=== PATIENT | male | born 1960 | race Caucasian/White ===

== ENCOUNTER 2016-08-30 10:00 | Emergency (ER) | payer MEDICAID, OTHER ==
[2016-08-30 10:00] VITALS: BMI 43.2
[2016-08-30 10:10] VITALS: TEMP 98
[2016-08-30] MEDS ORDERED: Sodium Chloride 0.9% 1,000 ML IV ONE ×2 (10:24→12:12)
[2016-08-30] MEDS ORDERED: Sodium Chloride 0.9% 1,000 ML ONE (10:34)
--- NOTE | 2016-08-30 10:42 | C.PDOC ---
History Of Present Illness 55 y/o male presents to the ED with complaints of 2 weeks left flank pain and abdominal pain. Pt denies vomiting, fever, chills, diarrhea or any other complaints. PMHx diabetes, HTN and left hernia repair. PMD Aleksandr. Time Seen by Provider: 08/30/16 10:16 Chief Complaint (Nursing): Male Genitourinary History Per: Patient History/Exam Limitations: no limitations Onset/Duration Of Symptoms: Days Current Symptoms Are (Timing): Still Present Severity: Moderate Quality Of Discomfort: "Pain" Associated Symptoms: denies: Fever, Chills, Vomiting, Diarrhea Alleviating Factors: None Recent travel outside of the [place]: No Past Medical History Reviewed: Historical Data, Nursing Documentation, Vital Signs Vital Signs: Last Vital Signs Temp 98 F 08/30/16 10:06 Pulse 74 08/30/16 10:06 Resp 18 08/30/16 10:06 BP 183/87 H 08/30/16 10:06 Pulse Ox 97 08/30/16 13:42 - Medical History PMH: Diabetes, Gastritis, HTN, Hypercholesterolemia, Chronic Pain (back pain, obesity) Comment Only: Sleep Apnea (SNORES BUT NO DX. APNEA) Surgical History: Other Surgeries: Hernia - [facility] Procedures COLONOSCOPY (02/19/14) CORONAR ARTERIOGR-2 CATH (05/13/14) INJECT/INFUSE NEC (05/13/14) LEFT HEART CARDIAC CATH (05/13/14) LT HEART ANGIOCARDIOGRAM (05/13/14) Family History: States: Unknown Family Hx - Social History Hx Tobacco Use: No Hx Alcohol Use: No (1 DAY WEEK) - Immunization History Hx Tetanus Toxoid Vaccination: Yes Hx Influenza Vaccination: Yes Hx Pneumococcal Vaccination: No Review Of Systems Except As Marked, All Systems Reviewed And Found Negative. Constitutional: Negative for: Fever, Chills Cardiovascular: Negative for: Chest Pain Gastrointestinal: Positive for: Abdominal Pain. Negative for: Vomiting, Diarrhea Musculoskeletal: Positive for: Other (left flank pain) Physical Exam - Physical Exam Appears: Non-toxic, No Acute Distress Skin: Warm, Dry, No Rash Head: Atraumatic, Normacephalic Neck: Normal, Normal ROM, Supple Chest: Symmetrical Cardiovascular: Rhythm Regular, No Murmur Respiratory: Normal Breath Sounds, No Rales, No Rhonchi, No Wheezing Gastrointestinal/Abdominal: Soft, Tenderness (LLQ), No Guarding, No Rebound Back: CVA Tenderness (mild left) Extremity: Normal ROM Extremity: Bilateral: Atraumatic Neurological/Psych: Oriented x3, Normal Speech Gait: Steady ED Course And Treatment - Laboratory Results Result Diagrams: 08/30/16 10:49 08/30/16 10:49 Lab Interpretation: Abnormal O2 Sat by Pulse Oximetry: 97 (room air) Pulse Ox Interpretation: Normal - CT Scan/US No standard instances Other Rad Studies (CT/US): Read By Radiologist, Radiology Report Reviewed CT/US Interpretation: FINDINGS: There is limited evaluation of the solid organs without the administration of IV contrast. LOWER THORAX: Minimal dependent atelectasis. There is no visible pleural effusion or pneumothorax. Small hiatal hernia/distal esophageal wall thickening. LIVER: Hepatomegaly. GALLBLADDER AND BILE DUCTS: Unremarkable unenhanced appearance. PANCREAS: Fatty atrophy of the pancreas. SPLEEN: Unremarkable unenhanced appearance. ADRENALS: Unremarkable unenhanced appearance. KIDNEYS AND URETERS: No hydronephrosis or obstructing renal calculus. BLADDER: The urinary bladder appears unremarkable. REPRODUCTIVE: Unremarkable. APPENDIX: The appendix appears within normal limits of caliber. No secondary signs of acute appendicitis. BOWEL: The stomach is nondistended. Lack of oral contrast limits evaluation for bowel pathology. The bowel loops appear within normal limits of caliber without evidence of intestinal obstruction. PERITONEUM: No significant free fluid. No definite free air. LYMPH NODES: No bulky lymphadenopathy identified. VASCULATURE: No aortic aneurysm. BONES: Degenerative changes. OTHER FINDINGS: Fat containing left inguinal hernia. IMPRESSION: Hepatomegaly. Fatty atrophy of the pancreas. Fat containing left inguinal hernia. Additional incidental findings as above. Progress Note: Plan: CT cervical spine, labs, IV fluids, toradol, IV fluids. Patient reports not taking his diabetes medication for about 1 year. treated with additional NSS. On re-evaluation abdomen soft in no distress. Patient advised to follow up with clinic. Given a Rx for metformin Reassessment Condition: Improved Disposition - Disposition [facility] Disposition: HOME/ ROUTINE Disposition Time: 14:00 Condition: IMPROVED Additional Instructions: Take medication as directed Follow up with clinic for further evaluation Prescriptions: metFORMIN [glucOPHAGE] 500 mg PO BID #30 tab Instructions: Inguinal Hernia (ED), Diabetic Hyperglycemia (ED) Print Language: OCCITAN - POA Present On Arrival: None - Clinical Impression Clinical Impression: Hernia, incisional, Diabetes - PA / GOLF PROFESSIONAL / Resident Statement MD/DO has reviewed & agrees with the documentation as recorded. - Scribe Statement The provider has reviewed the documentation as recorded by the Scribe Carlos Alberto Isaac All medical record entries made by the Scribe were at my direction and personally dictated by me. I have reviewed the chart and agree that the record accurately reflects my personal performance of the history, physical exam, medical decision making, and the department course for this patient. I have also personally directed, reviewed, and agree with the discharge instructions and disposition.
[2016-08-30 10:54] LABS: BASO # 0.1 K/uL (0.0-0.2); BASO % 0.8 % (0.0-2.0); EOS # 0.1 K/uL (0.0-0.7); EOS % 1.5 % (0.0-4.0); HEMATOCRIT 45.4 % (35.0-51.0); LYMPH # 1.2 K/uL (1.0-4.3); LYMPH % 16.4 % (20.0-40.0); MEAN CELL VOLUME 87.2 fL (80.0-94.0); MEAN CORPUSCULAR HEMOGLOBIN 29.4 pg (27.0-31.0); MEAN CORPUSCULAR HGB CONC 33.8 g/dL (33.0-37.0); MEAN PLATELET VOLUME 8.1 fL (7.2-11.7); MONO # 0.3 K/uL (0.0-0.8); MONO % 4.6 % (0.0-10.0); NRBC % 0.2 % (0.0-2.0); RED CELL DISTRIBUTION WIDTH 13.3 % (11.5-14.5); WHITE BLOOD COUNT 7.4 K/uL (4.8-10.8)
[2016-08-30 11:02] LABS: RBC URINE < 1 /hpf (0-3); URINE BILIRUBIN NEGATIVE (NEGATIVE); URINE BLOOD NEGATIVE (NEGATIVE); URINE COLOR Straw (YELLOW); URINE GLUCOSE (UA) 3+ mg/dL (Normal); URINE KETONE NEGATIVE (NEGATIVE); URINE LEUKOCYTE ESTERASE NEG Leu/uL (Negative); URINE PROTEIN NEGATIVE (NEGATIVE); URINE UROBILINOGEN NORMAL mg/dL (0.2-1.0)
[2016-08-30 11:04] LABS: CHLORIDE 95 mmol/L (98-107); POTASSIUM 4.4 mmol/L (3.6-5.2); SODIUM 133 mmol/L (132-148)
[2016-08-30 11:06] LABS: ALB/GLOB RATIO 1.3 (1.0-2.1); ALKALINE PHOSPHATASE 176 U/L (38-126); AST/SGOT 24 U/L (17-59); BILIRUBIN,TOTAL 0.8 mg/dL (0.2-1.3); CARBON DIOXIDE 28 mmol/L (22-30); GFR AFRICAN-AMERICAN > 60; TOTAL PROTEIN 6.8 g/dL (6.3-8.3)
[2016-08-30 11:07] LABS: ALT/SGPT 39 U/L (21-72); BLOOD UREA NITROGEN 14 mg/dL (9-20); CALCIUM 8.5 mg/dl (8.6-10.4)
[2016-08-30 11:23] LABS: GLUCOSE,RANDOM 425 mg/dL (75-110)
--- NOTE | 2016-08-30 11:54 | CT ---
PROCEDURE: CT Abdomen and Pelvis without Oral or IV contrast. HISTORY: Pain COMPARISON: CT abdomen and pelvis with contrast performed 04/20/15 TECHNIQUE: Contiguous axial images of the abdomen and pelvis. No oral or IV contrast administered. Coronal and Sagittal reformats generated and reviewed. Radiation dose: Total exam DLP = 1159.59 mGy-cm. This CT exam was performed using one or more of the following dose reduction techniques: Automated exposure control, adjustment of the mA and/or kV according to patient size, and/or use of iterative reconstruction technique. FINDINGS: There is limited evaluation of the solid organs without the administration of IV contrast. LOWER THORAX: Minimal dependent atelectasis. There is no visible pleural effusion or pneumothorax. Small hiatal hernia/distal esophageal wall thickening. LIVER: Hepatomegaly. GALLBLADDER AND BILE DUCTS: Unremarkable unenhanced appearance. PANCREAS: Fatty atrophy of the pancreas. SPLEEN: Unremarkable unenhanced appearance. ADRENALS: Unremarkable unenhanced appearance. KIDNEYS AND URETERS: No hydronephrosis or obstructing renal calculus. BLADDER: The urinary bladder appears unremarkable. REPRODUCTIVE: Unremarkable. APPENDIX: The appendix appears within normal limits of caliber. No secondary signs of acute appendicitis. BOWEL: The stomach is nondistended. Lack of oral contrast limits evaluation for bowel pathology. The bowel loops appear within normal limits of caliber without evidence of intestinal obstruction. PERITONEUM: No significant free fluid. No definite free air. LYMPH NODES: No bulky lymphadenopathy identified. VASCULATURE: No aortic aneurysm. BONES: Degenerative changes OTHER FINDINGS: Fat containing left inguinal hernia. IMPRESSION: Hepatomegaly. Fatty atrophy of the pancreas. Fat containing left inguinal hernia. Additional incidental findings as above.
[2016-08-30] MEDS ORDERED: (Novolin R) Insulin Human Regular 100 units/ml vial IV ONE (12:12)
[2016-08-30 14:34] VITALS: BP 183/101; PULSE 64; RESP 20; O2SAT 96
== END 2016-08-30 15:00 | disposition home or self-care (01) ==
LOC: C.ER 10:00
DX: K43.2 Incisional hernia without obstruction or gangrene (principal); E11.65 Type 2 diabetes mellitus with hyperglycemia
CPT/HCPCS: 74176; 80053; 81001; 82948; 83690; 85025; 96361; 96374; 99284; J1885; J7040

== ENCOUNTER 2017-07-22 08:52 | Emergency (ER) | payer OTHER ==
[2017-07-22 09:08] VITALS: BMI 42.9
[2017-07-22 09:10] VITALS: O2SAT 98
[2017-07-22] MEDS ORDERED: Sodium Chloride 0.9% 1,000 ML IV ONE (09:32)
[2017-07-22 09:52] LABS: BASO # 0.1 K/uL (0.0-0.2); BASO % 1.3 % (0.0-2.0); EOS # 0.1 K/uL (0.0-0.7); EOS % 1.3 % (0.0-4.0); HEMOGLOBIN 14.2 g/dL (12.0-18.0); LYMPH # 1.4 K/uL (1.0-4.3); LYMPH % 18.6 % (20.0-40.0); MEAN CELL VOLUME 85.8 fL (80.0-94.0); MEAN CORPUSCULAR HEMOGLOBIN 29.6 pg (27.0-31.0); MEAN CORPUSCULAR HGB CONC 34.5 g/dL (33.0-37.0); MEAN PLATELET VOLUME 8.1 fL (7.2-11.7); MONO # 0.4 K/uL (0.0-0.8); MONO % 5.5 % (0.0-10.0); NEUT # 5.6 K/uL (1.8-7.0); NEUT % 73.3 % (50.0-75.0); RBC 4.81 Mil/uL (4.40-5.90); RED CELL DISTRIBUTION WIDTH 13.3 % (11.5-14.5); WHITE BLOOD COUNT 7.7 K/uL (4.8-10.8)
[2017-07-22 09:54] LABS: URINE BILIRUBIN NEGATIVE (NEGATIVE); URINE BLOOD NEGATIVE (NEGATIVE); URINE CLARITY Clear (Clear); URINE COLOR Yellow (YELLOW); URINE GLUCOSE (UA) 3+ mg/dL (Normal); URINE LEUKOCYTE ESTERASE NEG Leu/uL (Negative); URINE PROTEIN NEGATIVE (NEGATIVE); URINE UROBILINOGEN NORMAL mg/dL (0.2-1.0)
[2017-07-22 10:05] LABS: ALB/GLOB RATIO 1.3 (1.0-2.1); ALT/SGPT 26 U/L (21-72); AST/SGOT 22 U/L (17-59); BLOOD UREA NITROGEN 15 mg/dL (9-20); CALCIUM 8.8 mg/dl (8.6-10.4); GFR AFRICAN-AMERICAN > 60; GFR NON-AFRICAN AMERICAN > 60; LIPASE 119 U/L (23-300)
[2017-07-22] MEDS ORDERED: Iohexol 350mg/ml 100 ML ONE (11:14)
--- NOTE | 2017-07-22 11:43 | C.PDOC ---
History Of Present Illness 56 year old male with a history of an inguinal hernia repair (2014) presents to the emergency department with complaints of lower abdomen tenderness persisting for one week. Patient denies nausea, vomiting, fever, dysuria, hematuria, and blood in the stool. Chief Complaint (Nursing): Male Genitourinary History Per: Patient Onset/Duration Of Symptoms: Days (1 week) Quality Of Discomfort: Other (tendeness) Associated Symptoms: denies: Fever, Nausea, Vomiting, Urinary Symptoms, Other ( blood in the stool) Past Medical History Reviewed: Historical Data, Nursing Documentation, Vital Signs Vital Signs: Last Vital Signs Temp 98 F 07/22/17 13:06 Pulse 78 07/22/17 13:06 Resp 18 07/22/17 13:06 BP 126/76 07/22/17 13:06 Pulse Ox 98 07/22/17 13:06 - Medical History PMH: Diabetes, Gastritis, HTN, Hypercholesterolemia, Chronic Pain (back pain, obesity) Comment Only: Sleep Apnea (SNORES BUT NO DX. APNEA) Surgical History: Hernia Repair - [facility] Procedures COLONOSCOPY (02/19/14) CORONAR ARTERIOGR-2 CATH (05/13/14) INJECT/INFUSE NEC (05/13/14) LEFT HEART CARDIAC CATH (05/13/14) LT HEART ANGIOCARDIOGRAM (05/13/14) Family History: States: No Known Family Hx - Social History Hx Tobacco Use: No Hx Alcohol Use: No (1 DAY WEEK) Hx Substance Use: No - Immunization History Hx Tetanus Toxoid Vaccination: Yes Hx Influenza Vaccination: Yes Hx Pneumococcal Vaccination: No Review Of Systems Except As Marked, All Systems Reviewed And Found Negative. Constitutional: Negative for: Fever Gastrointestinal: Positive for: Abdominal Pain. Negative for: Nausea, Vomiting , Melena Genitourinary: Negative for: Dysuria, Hematuria Physical Exam - Physical Exam Cardiovascular: Rhythm Regular Respiratory: Normal Breath Sounds Gastrointestinal/Abdominal: Normal Exam Extremity: Normal ROM ED Course And Treatment - Laboratory Results Result Diagrams: 07/22/17 09:44 07/22/17 09:44 O2 Sat by Pulse Oximetry: 98 (RA) Pulse Ox Interpretation: Normal Medical Decision Making Medical Decision Making: Plan: CT Abdomen and Pelvis w/Contrast CMP Lipase CBC NaCl 1000ml IV Urine Culture Urinalysis Disposition - Disposition Referrals: [facility], [Non-Staff] - Disposition: HOME/ ROUTINE Disposition Time: 12:20 Condition: GOOD Additional Instructions: Thank you for letting us take care of you today. The emergency medical care you received today was directed at your acute symptoms. If you were prescribed any medication, please fill it and take as directed. It may take several days for your symptoms to resolve. Return to the Emergency Department if your symptoms worsen, do not improve, or if you have any other problems. Please contact your doctor or call one of the physicians/clinics you have been referred to that are listed on the Patient Visit Information form that is included in your discharge packet. Bring any paperwork you were given at discharge with you along with any medications you are taking to your follow up visit. Our treatment cannot replace ongoing medical care by a primary care provider (PCP) outside of the emergency department. Thank you for allowing the [facility] team to be part of your care today. Follow up with your primary doctor in 2-3 days for re-evaluation and further management. Reji por dejarnos atenderlo hoy. La atencin mdica de emergencia que recibi hoy estaba dirigida a sandy sntomas agudos. Si le prescribieron algn medicamento, llnelo y tome segn las indicaciones. Sandy sntomas pueden tardar varios morales en resolverse. Regrese al Departamento de Emergencia si sandy s ntomas empeoran, no mejoran o si tiene algn otro problema. Comunquese con green mdico o llame a binh de los mdicos / clnicas a los que kat sido referido que figura en el formulario de Informacin de visita del paciente que se incluye en green paquete de ruth. Traiga todos los documentos que recibi al momento del ruth junto con los medicamentos que est tomando en green visita de seguimiento. Nuestro tratamiento no puede reemplazar la atencin mdica en curso por parte de un proveedor de atencin primaria (PCP) fuera del departamento de emergencias. Reji por permitir que el equipo de [facility] sea parte de green cuidado hoy. Chelita un seguimiento con green mdico de cabecera en 2-3 morales para sameer nueva evaluacin y sameer administracin posterior. Prescriptions: Ibuprofen [Motrin] 600 mg PO Q6 PRN #20 tab PRN Reason: Pain, Moderate (4-7) Instructions: Sprain (DC) Forms: Gen Discharge Inst Maori Print Language: ZAMBIAN - Clinical Impression Clinical Impression: Abdominal pain - Scribe Statement The provider has reviewed the documentation as recorded by the Scribe (Anurag Cook) Provider Attestation: All medical record entries made by the Scribe were at my direction and personally dictated by me. I have reviewed the chart and agree that the record accurately reflects my personal performance of the history, physical exam, medical decision making, and the department course for this patient. I have also personally directed, reviewed, and agree with the discharge instructions and disposition.
--- NOTE | 2017-07-22 12:13 | CT ---
PROCEDURE: CT Abdomen and Pelvis with contrast HISTORY: lower abdominal pain L>R, h/o hernia repair COMPARISON: Unenhanced abdomen and pelvis CT examination 08/30/2016. TECHNIQUE: Contrast dose: Omnipaque 350, 100 cc Radiation dose: Total exam DLP = 1126.83 mGy-cm. This CT exam was performed using one or more of the following dose reduction techniques: Automated exposure control, adjustment of the mA and/or kV according to patient size, and/or use of iterative reconstruction technique. FINDINGS: LOWER THORAX: Tiny hiatal hernia identified once again. LIVER: Diffuse hepatic diminished density suggests hepatic steatosis without focal mass or intrahepatic biliary duct dilatation appreciable. Borderline hepatomegaly. GALLBLADDER AND BILE DUCTS: Unremarkable. PANCREAS: Unremarkable. No gross lesion or ductal dilatation. SPLEEN: Unremarkable. ADRENALS: Unremarkable. No mass. KIDNEYS AND URETERS: Unremarkable. No hydronephrosis. No solid mass. VASCULATURE: Unremarkable. No aortic aneurysm. BOWEL: Collapse stomach noted. Limited ascending colon and sigmoid diverticular changes are appreciate without diverticulitis. No no bowel obstruction appreciable with mild fecal loading throughout the various large-bowel segments. . No gross mural thickening. APPENDIX: Normal appendix. PERITONEUM: Unremarkable. No free fluid. No free air. LYMPH NODES: Unremarkable. No enlarged lymph nodes. BLADDER: Unremarkable. REPRODUCTIVE: Unremarkable. BONES: No acute fracture. OTHER FINDINGS: Possible prior left inguinal hernia repair. IMPRESSION: 1. No definite acute abdominal or pelvic findings. Scattered colonic diverticular change appreciate without diverticulitis. 2. Hepatic steatosis and borderline hepatomegaly reiterated. 3. Prior left inguinal hernia repair in question.
[2017-07-22 13:07] VITALS: BP 126/76; PULSE 78; RESP 18; TEMP 98
== END 2017-07-22 13:18 | disposition home or self-care (01) ==
LOC: C.ER 08:52
DX: R10.30 Lower abdominal pain, unspecified (principal)
CPT/HCPCS: 74177; 80053; 81001; 83690; 85025; 87086; 99284; Q9967

== ENCOUNTER 2018-07-30 09:45 | Emergency (ER) | payer MEDICAID, OTHER ==
[2018-07-30 09:45] VITALS: BMI 42.9
--- NOTE | 2018-07-30 12:00 | C.PDOC ---
History Of Present Illness 57 y/o male with hx dm, htn and hypercholesterolemia, non compliant with medications since April. sts he has no insurance, c/o intermittent left sided upper abdominal pain, unclear if food related. pain started again today after eating bread with cheese and coffee. denies cp and sob. alsoc c/o constipation. though he had a bm today. sts he needs to force stool out. no fever or chills. no nausea or vomiting. Time Seen by Provider: 07/30/18 11:34 Chief Complaint (Nursing): Abdominal Pain History Per: [employer] ([id number]) History/Exam Limitations: language barrier Current Symptoms Are (Timing): Still Present Severity: Moderate Location Of Pain/Discomfort: LUQ Quality Of Discomfort: "Pain" Associated Symptoms: Constipation, Other (gas). denies: Fever, Chills, Nausea, Vomiting, Diarrhea, Back Pain, Chest Pain Past Medical History Reviewed: Historical Data, Nursing Documentation, Vital Signs Vital Signs: Last Vital Signs Temp 98.1 F 07/30/18 10:12 Pulse 68 07/30/18 10:12 Resp 19 07/30/18 10:12 BP 187/97 H 07/30/18 10:12 Pulse Ox 97 07/30/18 10:12 Primary Care Provider: FAMILY PROVIDER,NO - Medical History PMH: Diabetes, Gastritis, HTN, Hypercholesterolemia, Chronic Pain (back pain, obesity) Comment Only: Sleep Apnea (SNORES BUT NO DX. APNEA) Surgical History: Hernia Repair - [facility] Procedures COLONOSCOPY (02/19/14) CORONAR ARTERIOGR-2 CATH (05/13/14) INJECT/INFUSE NEC (05/13/14) LEFT HEART CARDIAC CATH (05/13/14) LT HEART ANGIOCARDIOGRAM (05/13/14) Family History: States: Unknown Family Hx - Social History Hx Tobacco Use: No Hx Alcohol Use: No (quit 2-years ago) Hx Substance Use: No - Immunization History Hx Tetanus Toxoid Vaccination: Yes Hx Influenza Vaccination: Yes (2018) Hx Pneumococcal Vaccination: No Review Of Systems Constitutional: Negative for: Fever, Chills ENT: Negative for: Mouth Swelling, Throat Pain Cardiovascular: Negative for: Chest Pain Respiratory: Negative for: Cough, Shortness of Breath Gastrointestinal: Positive for: Abdominal Pain, Constipation. Negative for: Nausea, Vomiting, Diarrhea Skin: Negative for: Rash Neurological: Negative for: Weakness, Numbness Physical Exam - Physical Exam Appears: Non-toxic, No Acute Distress Skin: Warm, Dry Head: Atraumatic, Normacephalic Oral Mucosa: Moist Neck: Supple Cardiovascular: Rhythm Regular, No Murmur Respiratory: No Decreased Breath Sounds, No Rhonchi, No Wheezing Gastrointestinal/Abdominal: Bowel Sounds, Soft, No Tenderness, No Distention, No Guarding, No Rebound, Other (old laparoscopic scars) Neurological/Psych: Oriented x3, Normal Speech, Normal Cognition ED Course And Treatment - Laboratory Results Result Diagrams: 07/30/18 12:27 07/30/18 12:27 ECG: Interpreted By Me ECG Rhythm: Sinus Rhythm Interpretation Of ECG: Nonspecific T wave changes, not seen on prior EKG 01/24/2015 Rate From EC O2 Sat by Pulse Oximetry: 97 Pulse Ox Interpretation: Normal Medical Decision Making Medical Decision Making: Pt with dm htn with luq pain intermittent for 2 weeks. Plan: labs ekg. cxr. pepcid ekg reviewed, + nonspecific T wave abnormality, not seen on old EKG (01/24/2015) 1425 pt reports abdominal pain resolved. 1500 discussed results with patient and need to take medications on regular basis, get [facility] care and follow up in clinic with im and cardiology. will re- start pt on metformin, atorvastatin, ranitidine, and lorsatan. explained to patient these should be inexpensive rx to fill. will get one month supply. pt with neg trop, with some ekg changes from prior ekg in 2014; pt has had pain for 2 weeks constantly, unlikely to be due to cardiac today. Disposition Counseled Patient/Family Regarding: Studies Performed, Diagnosis, Need For Followup, Rx Given - Disposition Referrals: [facility] [Outside] [facility] [Outside] Disposition: HOME/ ROUTINE Disposition Time: 15:18 Condition: GOOD Additional Instructions: Debe nidhi los medicamentos segn lo prescrito. Recomendado despus de salir de la leela de emergencias, usted va a la clnica para hacer sameer natanael de seguimiento y para solicitar atencin de lois. [place] sameer dieta blanda. Regrese a la leela de emergencias para cualquier sntoma peor. Use Miralax para el estreimiento y recomiende que se le remita a Gastroenterologa para colonoscopia. You must take medications as prescribed. Recommended after leaving ER, you go to clinic to make follow up appointment as well as apply for [facility] care. Eat bland diet. Return to ER for any worse symptoms. Use Miralax for constipation, and recommend you get referred to Gastroenterology for colonoscopy. Prescriptions: Atorvastatin [Lipitor] 10 mg PO DIN #30 tab Famotidine 20 mg PO DAILY #30 tablet Losartan [Cozaar] 50 mg PO DAILY #30 tab metFORMIN [glucOPHAGE] 500 mg PO BID #60 tab Instructions: High Blood Pressure (DC), [place] Diet, Diabetes Type 2 (DC), Gastritis (DC) Forms: Gen Discharge Inst Kiswahili, [facility] (Kiswahili) Print Language: [place] - Clinical Impression Clinical Impression: Gastritis, Hypertension, Hyperglycemia
[2018-07-30 12:35] LABS: BASO # 0.1 K/uL (0.0-0.2); BASO % 1.3 % (0.0-2.0); EOS # 0.1 K/uL (0.0-0.7); EOS % 0.8 % (0.0-4.0); HEMOGLOBIN 15.4 g/dL (12.0-18.0); LYMPH # 1.4 K/uL (1.0-4.3); LYMPH % 16.4 % (20.0-40.0); MEAN CELL VOLUME 85.4 fL (80.0-94.0); MEAN CORPUSCULAR HEMOGLOBIN 29.5 pg (27.0-31.0); MEAN CORPUSCULAR HGB CONC 34.5 g/dL (33.0-37.0); MEAN PLATELET VOLUME 7.8 fL (7.2-11.7); MONO # 0.4 K/uL (0.0-0.8); MONO % 4.4 % (0.0-10.0); NEUT # 6.4 K/uL (1.8-7.0); NEUT % 77.1 % (50.0-75.0); RBC 5.21 Mil/uL (4.40-5.90); RED CELL DISTRIBUTION WIDTH 13.2 % (11.5-14.5); WHITE BLOOD COUNT 8.4 K/uL (4.8-10.8)
[2018-07-30 12:46] LABS: ALB/GLOB RATIO 1.3 (1.0-2.1); ALBUMIN 4.2 g/dL (3.5-5.0); ALT/SGPT 27 U/L (21-72); AST/SGOT 19 U/L (17-59); BLOOD UREA NITROGEN 14 mg/dL (9-20); CALCIUM 9.1 mg/dl (8.6-10.4); GFR NON-AFRICAN AMERICAN > 60; LIPASE 207 U/L (23-300)
[2018-07-30 12:53] VITALS: TEMP 98.2
[2018-07-30 12:56] LABS: URINE BILIRUBIN NEGATIVE (NEGATIVE); URINE BLOOD NEGATIVE (NEGATIVE); URINE CLARITY Clear (Clear); URINE COLOR Yellow (YELLOW); URINE GLUCOSE (UA) 3+ mg/dL (Normal); URINE LEUKOCYTE ESTERASE NEG Leu/uL (Negative); URINE PROTEIN NEGATIVE (NEGATIVE); URINE UROBILINOGEN NORMAL mg/dL (0.2-1.0)
[2018-07-30 13:09] VITALS: O2SAT 97
[2018-07-30] MEDS ORDERED: Sodium Chloride 0.9% 1,000 ML ONE (13:14)
[2018-07-30] MEDS ORDERED: Sodium Chloride 0.9% 1,000 ML IV SCH (13:15)
--- NOTE | 2018-07-30 13:42 | RAD ---
Date of service: 07/30/2018 HISTORY: abd pain COMPARISON: 01/24/2015 TECHNIQUE: Chest PA and lateral views FINDINGS: LUNGS: No active pulmonary disease. PLEURA: No significant pleural effusion identified. No pneumothorax apparent. CARDIOVASCULAR: No aortic atherosclerotic calcification present. Normal cardiac size. No pulmonary vascular congestion. OSSEOUS STRUCTURES: Anterior thoracic vertebral body blending ossification-anterior longitudinal ligament-diffuse idiopathic skeletal hyperostoses DISH is inferred. This also some inferior thoraco lumbar spondylosis noted. VISUALIZED UPPER ABDOMEN: Normal. OTHER FINDINGS: None. IMPRESSION: No acute cardiopulmonary pathology noted. Osseous changes compatible with DISH
[2018-07-30 15:22] VITALS: BP 177/99; PULSE 67; RESP 20
--- NOTE | 2018-07-31 11:25 | CARD ---
APPROVED REPORT Date of service: 07/30/2018 EKG Measurement Heart [id number] <Conclusion> Normal sinus rhythm Nonspecific T wave abnormality Abnormal ECG
== END 2018-07-30 15:47 | disposition home or self-care (01) ==
LOC: C.ER 09:45
DX: K29.70 Gastritis, unspecified, without bleeding (principal); I10 Essential (primary) hypertension; E11.65 Type 2 diabetes mellitus with hyperglycemia; E78.00 Pure hypercholesterolemia, unspecified
CPT/HCPCS: 71046; 80053; 81001; 83690; 84484; 85025; 93005; 96374; 99283; J7030